=== PATIENT | female | born 1955 | race Caucasian/White ===

== ENCOUNTER → 2016-07-17 | Day surgery (SDC) | payer BC ==
[~2016-07-17] MED LIST: AMLO10TA2 PO; ATEN25TA PO; ATOR20TA58 PO; LIDOCAINE 1%/EPI 1:100,000 20 ML VIAL. IJ ONE; LIDOCAINE 1%/EPI 1:100,000 20 ML VIAL. ONE; LISI1TAB5 PO; RANI150C PO
[2016-07-17 12:32] VITALS: BP 132/64
--- NOTE | 2016-07-17 13:54 | PDOC ---
BRIEF OPERATIVE NOTE Date: Jul 17, 2016 Pre-Op Diagnosis Left forearm mass Post-Op Diagnosis Same Procedure Performed Excision of mass Surgeon Benjamín Anesthesia Type: Local Blood Loss 5ml Specimens Obtained Left forearm mass Findings as above Complications None CONNIE OLIVEIRA MD Jul 17, 2016 13:54
--- NOTE | 2016-07-17 13:55 | DISCH ---
DISCHARGE INSTRUCTIONS Condition on Discharge Condition on Discharge: Stable Activity After Discharge Activity Instructions for Disc: Resume previous activity Diet after Discharge Diet after Discharge: Regular Wound Incision Care Other wound/incision instructi: Misty shower in 24 hours Contacting the after DC Call your doctor for: If your condition worsens Follow-Up Follow up with: Dr Oliveira in 2 weeks CONNIE OLIVEIRA MD Jul 17, 2016 13:55
--- NOTE | 2016-07-17 19:02 | OP ---
DATE OF SURGERY: 07/17/2016 PREOPERATIVE DIAGNOSIS: Left forearm mass. POSTOPERATIVE DIAGNOSIS: Left forearm mass. PROCEDURE: Excision of mass. SURGEON: Vishal Oliveira M.D. INDICATIONS: The patient is a 60-year-old female complaining of a skin lesion on her left forearm that has been getting larger. Procedure of excision was explained to the patient in detail. Risks and benefits were also discussed including bleeding and infection. Alternatives of this procedure were also discussed with the patient who seemed to understand and gave verbal and written consent to have the procedure performed. DESCRIPTION OF PROCEDURE: The patient was taken to the minor's room and placed in the supine position. Her left forearm was prepped and draped in usual sterile fashion using ChloraPrep. An area around the mass was injected with 1% lidocaine with epinephrine. Once this was anesthetized, an elliptical incision was made with a 15 blade scalpel. It was carried down through the subcutaneous tissue excising the mass, sharp, blunt. This was sent for pathology. The wound was then closed in a single layer of running 4-0 subcuticular Monocryl. Mastisol, Steri-Strips and island dressing were applied. The patient tolerated the procedure well, was discharged to home in stable condition. All sponge and instrument counts listed as correct. Estimated blood loss 5 mL. VISHAL OLIVEIRA MD DR: SONI/santino JOB#: [id number] / [id number]
--- NOTE | 2016-07-20 16:57 | PATHOLOGY ---
PATHOLOGY REPORT * * * * * * * * FINAL DIAGNOSIS: Skin and subcutaneous tissue, excision left forearm skin mass: - Endophytic verruca vulgaris with cutaneous horn. COMMENT: There is no evidence of malignancy. The case is also examined by Dr. Arianna Ying, dermatopathologist with Pathology, who concurs with the diagnosis. (JPM:mgr:csd; d/t: 07/19/16) REPORT ELECTRONICALLY SIGNED BY: Jonathan Juarez M.D. DATE/TIME: 07/20/2016 16:56 * * * * * * * * GROSS PATHOLOGY: Received in formalin labeled "Sindhu Silva, skin mass left forearm," is a 3.0 x 1.1 x 0.9 cm ellipse of skin displaying a well-circumscribed, raised, partially crusted and pale erickson to light erickson lesion which measures 0.7 x 0.9 x 0.4 cm. The margins are inked black. The specimen is sectioned into 10 pieces and entirely submitted in cassettes A1 through A3, with the bisected tips placed in cassette A3. (CAA; 07/17/2016) INITIAL CPT CODE(S): A; 04069 Professional services performed [place] [place] [address] Technical services performed by [facility] at [address] [place] [address], [facility] [address] [address]. SPECIMEN(S) RECEIVED: A.Skin mass left forearm CLINICAL HISTORY: Left forearm skin mass PATIENT: SINDHU SILVA /AGE: 409/10/1955 (Age: 60) PATIENT #: [id number] ALT CASE #: SPECIMEN COLLECTION DATE: 07/17/2016 SPECIMEN RECEIVED DATE: 07/17/2016 [facility] - [address] [place] [address] - PHONE: [phone] * * * END OF REPORT * * *
== END | disposition home or self-care (01) ==
LOC: SURG 11:28
PROVIDERS: ATTEND Surgery
DX: B07.9 Viral wart, unspecified (principal); E78.00 Pure hypercholesterolemia, unspecified; I10 Essential (primary) hypertension; K21.9 Gastro-esophageal reflux disease without esophagitis; Z90.49 Acquired absence of other specified parts of digestive tract; Z90.710 Acquired absence of both cervix and uterus
CPT/HCPCS: 11403; 88305; J3490